=== PATIENT | female | born 1975 | race Caucasian/White ===

== ENCOUNTER 2021-08-13 02:21 | Emergency (ER) | payer BC ==
[~2021-08-13] VITALS: Ht 162.6 cm; Wt 91.0 kg
[2021-08-13 03:00] VITALS: BP 159/86
[2021-08-13] MEDS ORDERED: KETOROLAC 30MG/ML VIAL IM ONE (03:00)
[2021-08-13] MEDS ORDERED: CYCLOBENZAPRINE 10MG TABLET PO PRN (03:00)
[2021-08-13 03:33] LABS: BASOPHILS % 0.8 % (0.0-2.0); EOSINOPHILS % 2.7 % (0.0-5.0); HEMATOCRIT. 43.4 % (36.0-48.0); HEMOGLOBIN. 14.9 g/dL (12.0-16.0); LYMPHOCYTES % 38.8 % (20.0-50.0); MEAN CORPUSCULAR HEMOGLOBIN 30.2 pg (28.0-32.0); MEAN PLATELET VOLUME 6.7 fl (7.4-10.4); MONOCYTES % 7.9 % (2.0-8.0); NEUTROPHILS % 49.8 % (40.0-76.0); PLATELET 369 x1000/uL (130-400); RED BLOOD CELL COUNT 4.93 mill/uL (4.2-5.4); RED CELL DISTRIBUTION WIDTH 13.6 % (11.6-14.6)
[2021-08-13 05:11] LABS: CHLORIDE 106 mEq/L (98-107)
[2021-08-13 05:20] LABS: HCG SCREEN NEGATIVE
== END 2021-08-13 06:33 | disposition home or self-care (01) ==
LOC: ER 02:21
DX: R07.89 Other chest pain (principal)
CPT/HCPCS: 36415; 71045; 80053; 83690; 84484; 84703; 85025; 93005; 96372; 99285; J1885

== ENCOUNTER 2022-04-14 02:34 | Emergency (ER) | payer BC ==
[~2022-04-14] VITALS: Ht 157.5 cm; Wt 102.6 kg
[2022-04-14 04:18] LABS: CLARITY URINE CLOUDY (CLEAR); COLOR URINE YELLOW (YELLOW); KETONES URINE NEGATIVE (NEGATIVE); LEUKOCYTE ESTERASE URINE 2+ (NEGATIVE); NITRITE URINE POSITIVE (NEGATIVE); OCCULT BLOOD URINE TRACE (NEGATIVE); PH URINE 5.5 (4.5-8.0); PROTEIN URINE NEGATIVE (NEGATIVE); SPECIFIC GRAVITY URINE 1.019 (1.005-1.030); UROBILINOGEN URINE 0.2 E.U./dL (0.2-1.0)
[2022-04-14] MEDS ORDERED: KETOROLAC 60MG/2ML VIAL IM STA (04:45)
[2022-04-14] MEDS ORDERED: CEFTRIAXONE SODIUM 1 G/VIAL IM ONE (04:45)
[2022-04-14] MEDS ORDERED: LIDOCAINE HCL 1% 20ML VIAL (Pyxis) INJ INFIL ONE (04:45)
[2022-04-14] MEDS ORDERED: SULF1TAB48 PO (05:21)
[2022-04-14] MEDS ORDERED: PYR200 PO (05:21)
[2022-04-14] MEDS ORDERED: NAPR-681 PO (05:21)
[2022-04-14 05:26] VITALS: BP 138/92
[2022-04-14] MEDS: LIDOCAINE HCL 1% 10 MG/ML 10ML VIAL IJ NR ×2 (05:39→05:52)
== END 2022-04-14 05:55 | disposition home or self-care (01) ==
LOC: ER 02:34
DX: N39.0 Urinary tract infection, site not specified (principal); B96.20 Unspecified Escherichia coli [E. coli] as the cause of diseases classified elsewhere
CPT/HCPCS: 81003; 81025; 87077; 87086; 87186; 96372; 99284; J0696; J1885; J3490